=== PATIENT | female | born 1990 | race African-American/Black ===

== ENCOUNTER 2022-10-22 01:48 | Emergency (ER) | payer OTHER ==
[~2022-10-22] VITALS: Ht 139.7 cm; Wt 48.9 kg
[2022-10-22 02:49] LABS: URINE BILIRUBIN - DIPSTICK NEGATIVE (NEGATIVE); URINE BLOOD DIPSTICK NEGATIVE (NEGATIVE); URINE COLOR YELLOW; URINE GLUCOSE - DIPSTICK NEGATIVE (NEGATIVE); URINE KETONE NEGATIVE (NEGATIVE); URINE LEUK ESTERASE NEGATIVE (NEGATIVE); URINE PROTEIN - DIPSTICK NEGATIVE (NEG-TRACE); URINE UROBILINOGEN - DIPSTICK 0.2 E.U./dL (0.2)
[2022-10-22 03:08] LABS: URINE NITRITE - DIPSTICK NEGATIVE (Negative)
[2022-10-22] MEDS ORDERED: CYCLOBENZAPRINE10 MG PO (04:46)
[2022-10-22] MEDS ORDERED: NAPROXEN500 MG PO (04:46)
[2022-10-22 07:15] VITALS: BP 100/65
== END 2022-10-22 07:15 | disposition home or self-care (01) | DRG 552 ==
LOC: ED 01:48
PROVIDERS: Emergency Medicine
DX: M54.2 Cervicalgia (principal); M25.562 Pain in left knee; M79.641 Pain in right hand; V43.62XA Car passenger injured in collision with other type car in traffic accident, initial encounter